=== PATIENT | female | born 1990 | race Caucasian/White ===

== ENCOUNTER 2017-01-06 11:32 | Emergency (ER) | payer OTHER ==
[2017-01-06 12:14] LABS: BILIRUBIN NEGATIVE (NEGATIVE); BLOOD 3+ Ery/uL (NEGATIVE); CLARITY CLEAR (CLEAR); COLOR YELLOW (YELLOW); GLUCOSE (U) NORMAL (NORMAL); KETONE (U) NEGATIVE (NEGATIVE); LEUKOCYTES 3+ Leu/uL (NEGATIVE); NITRITE NEGATIVE (NEGATIVE); PROTEIN NEGATIVE (NEGATIVE); UROBILINOGEN 0.2 mg/dL (0.2-1.0); pH 7.5 (5.0-9.0)
[2017-01-06 12:26] LABS: URINARY WBC TNTC
[2017-01-06 12:28] LABS: BACTERIA TRACE; SQUAMOUS EPITHELIAL CELLS RARE
== END 2017-01-06 13:21 | disposition home or self-care (01) ==
LOC: FER 11:32
PROVIDERS: Emergency Medicine
DX: N30.90 Cystitis, unspecified without hematuria (principal); N89.8 Other specified noninflammatory disorders of vagina
CPT/HCPCS: 81001; 87088

== ENCOUNTER 2020-10-23 02:16 | Emergency (ER) | payer OTHER ==
[~2020-10-23 02:16] MED LIST: BACLOFEN 10MG T10 MG PO; BACTRIM DS TAB1 EACH PO; DIFLUCAN150 MG PO; FLOMAX 0.4 MG0.4 MG PO; HYDROCODON-ACE1 EAC2 PO; KETOROLAC TROME10 MG PO; LORCET PLUS 7.1 EACH PO; NAPROXEN500 MG PO; NORCO 5-325 TA1 EACH PO; PHENERGAN25 M1 PO; ZOFRAN8 MG PO
[2020-10-23] MEDS ORDERED: IBUPROFEN800 MG PO (03:34)
[2020-10-23] MEDS ORDERED: PERCOCET 5-3251 EACH PO (03:34)
== END 2020-10-23 03:37 | disposition home or self-care (01) ==
LOC: FER 02:16
DX: S52.572A Other intraarticular fracture of lower end of left radius, initial encounter for closed fracture (principal); W19.XXXA Unspecified fall, initial encounter
CPT/HCPCS: 73110